=== PATIENT | female | born 1965 | race Caucasian/White ===

== ENCOUNTER → 2024-06-16 | Day surgery (SDC) | payer MEDICARE ==
[~2024-06-16] VITALS: Ht 167.6 cm; Wt 84.8 kg
[~2024-06-16] MED LIST: ACETAMINOPHEN 500 MG TAB or CAP PO ONE; ARIP20TA4 PO; ATOR20TA50 PO; CELECOXIB 100 MG CAP ONE; CLON0.5T3 PO; DexAMETHasone SOD PHOS 10MG/1ML VIAL INJ ONE; EPINEPHrine HCL 1 MG/1 ML AMP ONE; ESMOLOL HCL 10 ML IV ONE; FLUMAZENIL 0.1 MG/ML INJ 10ML MDV IV PRN; FOLI-119 PO; GABA-1250 PO; GABAPENTIN 300 MG CAP ONE; GLYCOPYRROLATE 0.2 MG/ML 1ML VIAL ONE; HYDROmorphone HCL 2 MG/ML VL/or syr IV PRN; IBUP-1454 PO; KETAMINE 50mg/ML 1ml syringe ONE; KETOROLAC TROMETH 30 MG/ML 1ML VIAL ONE; LIDOCAINE W/ EPINEPHRINE 1% 20ML VIAL ONE; MEPERIDINE HCL (50 MG/ML) 1 ML VIAL ONE; MULT-1228 PO; NALOXONE HCL 0.4 MG/ML VIAL IV PRN; ONDANSETRON HCL 4 MG/2 ML VIAL IV PRN; ONDANSETRON HCL 4 MG/2 ML VIAL ONE; PROPOFOL 10 MG/ML 20 ML IV ONE; TOPI100T68 PO; TRAZ-228 PO; ZOLP12.569 PO; ePHEDrine SULFATE 50 MG/ML AMP IV PRN; fentaNYL CITRATE 100 MCG/2 ML VL IV PRN; fentaNYL CITRATE 100 MCG/2 ML VL ONE; hydrALAZINE HCL 20 MG/ML VL IV PRN; oxyCODONE HCL 5MG TAB PO PRN
[2024-06-16] MEDS: ACETAMINOPHEN 500 MG TAB or CAP PO ONE (12:35)
[2024-06-16] MEDS: GABAPENTIN 300 MG CAP PO ONE (12:36)
[2024-06-16] MEDS: CELECOXIB 100 MG CAP PO ONE (12:37)
--- NOTE | 2024-06-16 13:26 | DVHOP2 ---
Operative Report - 2 Report Details Date: 06/16/24 Preop Diagnosis: Left knee medial meniscus tear Postop Diagnosis: Left knee medial meniscus tear Surgeon: Yahaira Woodard MD Resident Care Provider: Paolo OLIVEIRA Anesthesiologist: Ben Shi CRNA Anesthesia: General, Local Consent: The patient was informed of the risks and benefits of the procedure. These include but are not limited to complications of anesthesia, postoperative infection, incomplete relief of symptoms, recurrence of symptoms, damage to blood vessels, nerves and tendons, deep venous thrombosis, pulmonary embolism and possible need for repeat surgery in the future. Complications: None Estimated Blood Loss: None Fluids: See anesthesia record Findings: Normal range of motion no instability. Complex degenerative tear of the body and posteromedial meniscus. Cartilage was relatively spared. Small area of grade 4 cartilage injury at the tibial plateau laterally ACL and PCL were intact patellofemoral compartment normal Indications for Surgery: Left knee medial meniscus tear with mechanical symptoms not resolving Name of Procedure Performed Left knee arthroscopy, partial medial meniscectomy Procedure Details Procedure Details: Patient was brought to the operating room placed on table supine position. General and local anesthetic were given. 2 g IV Ancef were given. Examination under anesthesia performed. Operative lower extremity was prepped and draped in sterile fashion. Surgical timeout was performed verifying patient, laterality, and procedure. I then made inferior lateral portal in usual fashion and entered the joint with blunt cannula and trocar. I began my inspection of the supra suprapatellar recess patellofemoral compartment medial gutter and the medial compartment. I placed inferior medial portal utilizing a spinal needle for guidance. I inspected and probed the structures identifying the meniscus tear. The tear was debrided to a stable margin with biters and costa which was verified with probing. I then shaved some fat pad to improve visualization in the notch then inspected and probed ligaments which were intact. I checked the lateral compartment in the [id number] position and again probed the structures which were intact with the exception noted above. I inspected the lateral gutter and brought my attention back to the patellofemoral compartment. I irrigated and suctioned several times to remove particular debris. I then suctioned the joint as dry as possible. Portal sites were closed with Steri- Strips. The wounds were dressed sterilely. Patient tolerated the procedure well and was brought to the recovery room in stable condition. Condition Stable Disposition Still a Patient YAHAIRA WOODARD MD Jun 16, 2024 13:26
[2024-06-16 13:28] VITALS: O2SAT 96
[2024-06-16] MEDS: MEPERIDINE HCL (25 MG/ML) 1ML VIAL IV ONE (13:50)
[2024-06-16 15:03] VITALS: BP 132/73; PULSE 75; RESP 15; O2SAT 98
== END | disposition home or self-care (01) ==
LOC: SUR 10:56
PROVIDERS: ATTEND Orthopaedic Surgery
DX: S83.232A Complex tear of medial meniscus, current injury, left knee, initial encounter (principal); G89.18 Other acute postprocedural pain; G40.909 Epilepsy, unspecified, not intractable, without status epilepticus; E78.00 Pure hypercholesterolemia, unspecified; F41.8 Other specified anxiety disorders; F31.89 Other bipolar disorder; G43.909 Migraine, unspecified, not intractable, without status migrainosus; E66.1 Drug-induced obesity; Z68.30 Body mass index [BMI] 30.0-30.9, adult; Z90.710 Acquired absence of both cervix and uterus; Z98.890 Other specified postprocedural states; Z87.891 Personal history of nicotine dependence; X58.XXXA Exposure to other specified factors, initial encounter; Y93.89 Activity, other specified; Y92.89 Other specified places as the place of occurrence of the external cause; Y99.8 Other external cause status
CPT/HCPCS: 29881; 64450; 76942; J0171; J1100; J1885; J2175; J2405; J2704; J3010